=== PATIENT | female | born 1970 | race Caucasian/White ===

== ENCOUNTER 2020-06-04 15:11 | Outpatient (CLI) | payer BC, SELFPAY ==
--- NOTE | ~2020-06-04 | MM_ITS ---
EXAMINATION: MM screening [facility] BI w jessica HISTORY: Screening TECHNIQUE: Craniocaudal and mediolateral oblique 3-D tomosynthesis images were obtained and synthetic 2-D images were generated. CAD analysis was submitted and interpreted. COMPARISON: Comparison to multiple prior studies sequentially, with oldest reviewed study dated 07/25. BREAST PARENCHYMAL COMPOSITION: There are scattered areas of fibroglandular density. FINDINGS: There are developing asymmetries in the central aspect of the right breast. The left breast is stable without evidence for malignancy. IMPRESSION: 1. Developing right breast asymmetries. 2. Additional mammographic views and possible breast ultrasound are recommended. BI-RADS Category 0: Incomplete: Needs additional imaging evaluation. Reviewed, dictated and finalized at location A. DDLE BUGGY OPERATOR IMPRESSION: 1. Developing right breast asymmetries. 2. Additional mammographic views and possible breast ultrasound are recommended . BI-RADS Category 0: Incomplete: Needs additional imaging evaluation.
== END 2020-06-04 15:12 | disposition home or self-care (01) ==
LOC: ANHIMG 15:15
PROVIDERS: Family Provider Family Medicine; PCP Family Medicine; Visit Provider Obstetrics & Gynecology
DX: Z12.31 Encounter for screening mammogram for malignant neoplasm of breast (principal); R92.8 Other abnormal and inconclusive findings on diagnostic imaging of breast
CPT/HCPCS: 77063; 77067

== ENCOUNTER 2020-07-04 12:48 | Outpatient (CLI) | payer BC, SELFPAY ==
--- NOTE | ~2020-07-04 | MMUS_ITS ---
EXAMINATION: MM diagnostic mammo unilat RT, US breast RT limited HISTORY: Focal asymmetry of the right breast on screening mammogram TECHNIQUE: Additional 3-D tomosynthesis images of the right breast were performed and synthetic 2-D i mages were generated. CAD analysis was submitted and interpreted. High resolution limited right breas t ultrasound was performed. COMPARISON: 06/04/2020, 10/25/2013, 07/25/2012 FINDINGS: MAMMOGRAPHIC FINDINGS: There is a return to baseline fibroglandular appearance with spot compression of the right breast. No suspicious mass, calcification, or architectural distortion are identified. ULTRASOUND: There is an 11 mm x 8 mm oval, circumscribed, parallel, complex cystic and solid mass at the 12:00 lo cation 2 cm from the nipple with no posterior features or internal vascularity. IMPRESSION: 1. Probably benign right breast mass. 2. Recommend 6 month follow-up right diagnostic mammogram and ultrasound. BI-RADS category 3, probably benign findings. Reviewed, dictated and finalized at location A. ISHER IMPRESSION: 1. Probably benign right breast mass. 2. Recommend 6 month follow-up right diagnostic mammogram and ultrasound. BI-RADS category 3, probably benign findings.
== END 2020-07-04 12:49 | disposition home or self-care (01) ==
LOC: ANHIMG 12:49
PROVIDERS: PCP Family Medicine; Visit Provider Obstetrics & Gynecology
DX: R92.8 Other abnormal and inconclusive findings on diagnostic imaging of breast (principal)
CPT/HCPCS: 76642; 77065

== ENCOUNTER 2021-01-13 13:27 | Outpatient (CLI) | payer BC, SELFPAY ==
--- NOTE | ~2021-01-13 | MMUS_ITS ---
EXAMINATION: MM diagnostic [facility] RT w jessica, US breast RT complete HISTORY: Six-month follow-up of 12:00 11 x 8 mm complex lesion 2 cm from nipple TECHNIQUE: ML, MLO and craniocaudal full field and spot 3-D tomosynthesis images of the right breast were performed and synthetic 2-D images were generated. CAD analysis was submitted and interpreted. H igh resolution complete right breast ultrasound was performed. COMPARISON: 07/04/2020 diagnostic right mammogram and limited right breast ultrasound 06/04/2020 bilateral digital screening mammogram 10/25/2013 bilateral digital screening mammogram BREAST PARENCHYMAL COMPOSITION: There are scattered areas of fibroglandular density. FINDINGS: MAMMOGRAPHIC FINDINGS: No suspicious mass or architectural distortion, malignant calcification, skin thickening or retractio n or significant new or developing density is detected. ULTRASOUND: There are scattered small circumscribed hypoechoic and sonolucent parallel oval lesions, mostly cysts , septated cysts and dilated ducts. The largest situated at 9:00, measuring up to 4.1 x 5.1 x 7.3 mm. No suspicious solid lesion or shadowing is noted. IMPRESSION: 1. No mammographic or sonographic evidence of malignancy 2. Mammographic screening is recommended BI-RADS Category 2: Benign finding(s). Reviewed, dictated and finalized at location A. IMPRESSION: 1. No mammographic or sonographic evidence of malignancy 2. Mammographic screening is recommended BI-RADS Category 2: Benign finding(s).
== END 2021-01-13 13:28 | disposition home or self-care (01) ==
LOC: ANHIMG 13:32
PROVIDERS: PCP Family Medicine; Visit Provider Obstetrics & Gynecology
DX: R92.8 Other abnormal and inconclusive findings on diagnostic imaging of breast (principal)
CPT/HCPCS: 76641; 77061; 77065; G0279

== ENCOUNTER 2022-05-04 14:48 | Outpatient (CLI) | payer BC, SELFPAY ==
--- NOTE | ~2022-05-04 | MM_ITS ---
EXAMINATION: MM screening [facility] w jessica HISTORY: Screening mammogram TECHNIQUE: Craniocaudal and mediolateral oblique 3-D tomosynthesis images were obtained and synthetic 2-D images were generated. CAD analysis was submitted and interpreted. COMPARISON: 01/13/2021 diagnostic right mammogram and complete right breast ultrasound 07/04/2020 diagnostic right mammogram and limited right breast ultrasound 06/04/2020 bilateral screening mammogram examination BREAST PARENCHYMAL COMPOSITION: There are scattered areas of fibroglandular density. FINDINGS: Stable mild fibroglandular asymmetry. There is no evidence of suspicious mass, calcificatio n, or architectural distortion to suggest malignancy in either breast. There has been no suspicious i nterval change. IMPRESSION: 1. No mammographic evidence of malignancy. 2. Recommend routine screening mammography in one year. BI-RADS Category 2: Benign finding(s). Reviewed, dictated and finalized at location A. ERCIAL LENDER
== END 2022-05-04 14:49 | disposition home or self-care (01) ==
PROVIDERS: PCP Family Medicine; Visit Provider Obstetrics & Gynecology
DX: Z12.31 Encounter for screening mammogram for malignant neoplasm of breast (principal)
CPT/HCPCS: 77063; 77067

== ENCOUNTER 2024-11-19 14:25 | Outpatient (CLI) | payer OTHER, SELFPAY ==
--- NOTE | ~2024-11-19 | CT_ITS ---
CT Scan of the Chest without Contrast: Clinical Indication: Lung cancer screening, nicotine dependence Technique: Contiguous sections were acquired throughout the chest without intravenous contrast. Dose reduction technique was used on this scan by utilizing automated exposure control and iterative recon struction technique. The dose-length product (DLP) was 159.31 mGy-cm. Findings: There is no evidence of any significant mediastinal, hilar or axillary lymphadenopathy. The mediastin al soft tissues appear normal. There is no evidence of pleural or pericardial effusion. The lungs are clear. No pulmonary nodules or infiltrates are noted. Images through the upper abdomen reveal no abnormalities. Impression: Lung RADS 1: Negative. 12 month follow-up screening CT advised. Reviewed, dictated and finalized at location . Impression: Lung RADS 1: Negative. 12 month follow-up screening CT advised.
== END 2024-11-19 14:26 | disposition home or self-care (01) ==
PROVIDERS: PCP Internal Medicine
DX: Z12.2 Encounter for screening for malignant neoplasm of respiratory organs (principal); Z87.891 Personal history of nicotine dependence
CPT/HCPCS: 71271